=== PATIENT | female | born 1970 | race Asian ===

== ENCOUNTER 2024-08-05 21:59 | Emergency (ER) | payer OTHER ==
[~2024-08-05] VITALS: Ht 147.3 cm; Wt 63.5 kg
[2024-08-05 22:27] LABS: BASOPHILS # (AUTO) 0.1 (0.0-0.1); BASOPHILS % 0.9 % (0.0-1.0); EOSINOPHILS # (AUTO) 0.4 (0.0-0.4); EOSINOPHILS % 5.1 % (0.0-6.0); HEMATOCRIT 41.4 % (34.2-44.1); LYMPHOCYTES # (AUTO) 4.5 (1.0-3.2); LYMPHOCYTES % 55.1 % (18.0-39.1); MEAN CORPUSCULAR HEMOGLOBIN 30.8 pg (28-32); MEAN CORPUSCULAR HGB CONC 33.8 g/dL (31-35); MEAN CORPUSCULAR VOLUME 91.2 fL (81-99); MONOCYTES # (AUTO) 0.9 (0.2-0.8); MONOCYTES % 11.5 % (4.4-11.3); NEUTROPHILS # (AUTO) 2.2 (2.1-6.9); NEUTROPHILS % 27.2 % (38.7-80.0); PLATELET COUNT 321 x10e3/uL (140-360); RED BLOOD COUNT 4.54 x10e6/uL (3.6-5.1); RED CELL DISTRIBUTION WIDTH 11.6 % (11.7-14.4); WHITE BLOOD COUNT 8.19 x10e3/uL (4.8-10.8)
[2024-08-05] MEDS: SODIUM CHLORIDE 0.9% 1000ML 1,000 ML IV STA (22:56)
[2024-08-05] MEDS: FAMOTIDINE 20 MG/2 ML VIAL IV STA (22:57)
[2024-08-05 22:59] LABS: ALANINE AMINOTRANSFERASE 49 IU/L (0-55); ALKALINE PHOSPHATASE 153 IU/L (40-150); ANION GAP 15.7 mmol/L (8-16); BILIRUBIN,TOTAL 0.2 mg/dL (0.2-1.2); BLOOD UREA NITROGEN 8 mg/dL (7-26); BUN/CREATININE RATIO 11 (6-25); CALCIUM 10.2 mg/dL (8.4-10.2); CARBON DIOXIDE 26 mmol/L (22-29); CHLORIDE 105 mmol/L (98-107); CREATINE KINASE 117 IU/L (29-168); CREATININE, SERUM 0.74 mg/dL (0.57-1.11); EST GLOMERULAR FILTRATION RATE 97 ML/MIN (>=60); GLUCOSE 102 mg/dL (74-118); POTASSIUM 3.7 mmol/L (3.5-5.1); SODIUM 143 mmol/L (136-145); TOTAL PROTEIN 8.2 g/dL (6.5-8.1)
[2024-08-05 23:11] LABS: TROPONIN I < 0.001 ng/mL (0-0.300)
[2024-08-05 23:34] VITALS: PULSE 66; RESP 16; TEMP 98.2; O2SAT 97
== END 2024-08-05 23:25 | disposition home or self-care (01) ==
LOC: ER 22:05
DX: R06.02 Shortness of breath (principal); R07.89 Other chest pain; R03.0 Elevated blood-pressure reading, without diagnosis of hypertension; R94.31 Abnormal electrocardiogram [ECG] [EKG]
CPT/HCPCS: 36415; 71045; 80053; 82550; 83690; 83880; 84484; 85025; 93005; 99284; J7030